=== PATIENT | female | born 1975 | race African-American/Black ===

== ENCOUNTER 2017-11-20 05:39 | Day surgery (SDC) | payer BC ==
[~2017-11-20] VITALS: Ht 162.6 cm; Wt 81.6 kg
[2017-11-20] MEDS ORDERED: ACET-2178 PO (05:50)
[2017-11-20] MEDS ORDERED: PROP20TA7 PO (05:50)
[2017-11-20 06:33] LABS: UCG SCREEN NEGATIVE
[2017-11-20] MEDS ORDERED: LACTATED RINGERS 1,000 ML IV SCH (06:45)
[2017-11-20] MEDS ORDERED: ROCURONIUM BROMIDE 10MG/ML VIAL 5ML IV ONE (07:01)
[2017-11-20] MEDS ORDERED: PROPOFOL 200MG/20ML VIAL IV ONE (07:01)
[2017-11-20] MEDS ORDERED: FENTANYL CITRATE/PF 50MCG/ML 5ML VIAL ONE (07:01)
[2017-11-20] MEDS ORDERED: MIDAZOLAM HCL 2 MG/2 ML VIAL ONE (07:01)
[2017-11-20] MEDS ORDERED: SUCCINYLCHOLINE CHLORIDE 200MG/10ML VIAL IV ONE (07:06)
[2017-11-20] MEDS ORDERED: CEFAZOLIN SODIUM 1000MG/VIAL ONE (07:08)
[2017-11-20] MEDS ORDERED: BUPIVACAINE HCL/PF 0.5% (5MG/ML) 10ML ONE (07:12)
[2017-11-20] MEDS ORDERED: SKIN ADHESIVE 0.7 GM EA TOP ONE (07:13)
[2017-11-20] MEDS ORDERED: BUPIVACAINE HCL 0.5% (5MG/ML) 50ML ONE (07:30)
[2017-11-20] MEDS ORDERED: ONDANSETRON HCL 4MG/2ML VIAL ONE (07:55)
[2017-11-20] MEDS ORDERED: NEOSTIGMINE METHYLSULFATE 1MG/ML 10 ML VIAL ONE (08:01)
[2017-11-20] MEDS ORDERED: GLYCOPYRROLATE 0.2 MG/ML 2ML VIAL ONE (08:01)
[2017-11-20] MEDS ORDERED: MEPERIDINE HCL/PF 25MG/ML CPJ IV PRN (08:30)
[2017-11-20] MEDS ORDERED: ONDANSETRON HCL 4MG/2ML VIAL IV SCH (08:30)
[2017-11-20] MEDS ORDERED: HYDROMORPHONE HCL/PF 2MG/ML CPJ IV PRN (08:30)
[2017-11-20] MEDS: FENTANYL CITRATE/PF 50MCG/ML 2ML VIAL IV PRN ×4 (09:12→10:26)
[2017-11-20 11:17] VITALS: BP 131/90
== END 2017-11-20 11:30 | disposition home or self-care (01) ==
LOC: OR 05:39
PROVIDERS: ATTEND Surgery
DX: K43.9 Ventral hernia without obstruction or gangrene (principal); I10 Essential (primary) hypertension; K21.9 Gastro-esophageal reflux disease without esophagitis; Z79.899 Other long term (current) drug therapy; Z98.890 Other specified postprocedural states
CPT/HCPCS: 49560; 49568; 81025; C1781; G0168; J0330; J0690; J1170; J2175; J2250; J2405; J2710; J3010; J3490; J7120; J2704